=== PATIENT | female | born 1945 | race Caucasian/White ===

== ENCOUNTER 2024-03-15 14:41 | Emergency (ER) | payer MEDICARE, OTHER, SELFPAY ==
[2024-03-15 15:01] VITALS: BP 136/74
[2024-03-15 15:20] LABS: % Basophils 0.4 % (0-2); % Eosinophils 0.6 % (0-6); % Immature Granulocytes 0.2 % (0-0.5); % Lymphocytes 12.6 % (20.5-51.1); % Monocytes 7.1 % (1.7-9.3); % Neutrophils 79.1 % (42.2-75.2); Absolute Eosinophils 0.1 10^3/uL (0-0.7); Absolute Lymphocytes 1.2 10^3/uL (1.2-3.4); Absolute Monocytes 0.7 10^3/uL (0.1-0.6); Absolute Neutrophils 7.4 10^3/uL (1.4-6.5); Hematocrit 40.2 % (37.0-47.0); Hemoglobin 13.6 g/dL (12.0-16.0); Mean Corp Hgb Conc. 33.8 g/dL (33.0-37.0); Mean Corpuscular Hgb 28.4 pg (27.0-31.0); Mean Corpuscular Volume 83.9 fL (81.0-99.0); Mean Platelet Volume 8.6 fL (7.4-10.4); Nucleated Red Blood Cells % 0 %; Platelet Count 256 10^3/uL (130-400); Red Blood Cell Count 4.79 10^6/uL (4.20-5.40); Red Cell Dist. Width 14.1 % (11.5-14.5); White Blood Cell Count 9.3 10^3/uL (4.8-10.8)
[2024-03-15 15:40] LABS: Troponin I < 0.012 ng/ml
[2024-03-15 17:33] LABS: Blood Urea Nitrogen 14 mg/dl (7-17); Calcium 8.7 mg/dl (8.4-10.2); Carbon Dioxide 26 mmol/L (22-30); Chloride 104 mmol/L (98-107); Glucose 95 mg/dl (70-99); Lipase 102 U/L (23-300); Sodium 133 mmol/L (135-145); eGFR > 60.00
--- NOTE | 2024-03-15 18:15 | ED.GENMED ---
History of Present Illness
General
Chief Complaint: Abdominal Pain
Time Seen by Provider: 03/15/24 16:21
History of Present Illness
History of Present Illness:
78-year-old female with history of hyperlipidemia presents to the emergency department for evaluation of sudden onset epigastric pain beginning at approximately noon today. Pain gradually worsened and culminated in vomiting. Shortly after vomiting
the pain improved and upon arrival to the emergency department the pain resolved. She is currently asymptomatic on my evaluation. Prior abdominal surgery is isolated to an inguinal hernia repair at age 6. Denies any recent fevers or chills
Review of Systems
Review of Systems
Allergies reviewed?: Yes
All Other Systems: ROS reviewed and negative except as documented in HPI and ROS
Phy Exam
Physical Exam
Physical Exam:
GEN: Well appearing, NAD, WDWN
Eyes: PERRLA, EOMs intact, no scleral icterus
HENT: NCAT, oral mucosa moist
Lungs: CTAB, no wheezes, rales, rhonchi, normal chest wall excursion
Cardiac: RRR, no M/R/G, no peripheral edema. Radial pulses 2+ bilat
Abdomen: S, NT, ND, NABS, no masses or hepatosplenomegaly
Neuro: AO x 3
MSK: No gross deformity or ecchymosis. No edema. No digital clubbing
Skin: No rashes, petechiae. Normal color, no pallor or jaundice.
Psych: Calm, cooperative, proper hygiene
Course
Orders/Labs/Results
Orders:
Orders
03/15/24 15:03
Electrocardiogram (*1) Urgent
Reason for Study: Abdominal Pain
EKG- Treatment ONCE
03/15/24 15:07
Complete Blood Count/With Diff Urgent
Troponin I Urgent
03/15/24 16:55
Basic Metabolic Panel Urgent
Lipase Urgent
03/15/24 18:05
LFT [[id number]] Stat
03/15/24 18:54
US Abdomen Limited Urgent
Reason For Exam: epigastric pain/transaminitis
Abnormal Lab Results
03/15/24 03/15/24 03/15/24
15:07 16:55 18:05
Absolute Neuts (auto) 7.4 H 10^3/uL
(1.4-6.5)
Absolute Monos (auto) 0.7 H 10^3/uL
(0.1-0.6)
Neutrophils % 79.1 H %
(42.2-75.2)
Lymphocytes % 12.6 L %
(20.5-51.1)
Sodium 133 L mmol/L
(135-145)
Creatinine 0.5 L mg/dL
(0.6-1.0)
AST 497 H U/L
(14-36)
ALT 251 H U/L
(0-35)
Alkaline Phosphatase 136 H U/L
(38-126)
03/15/24 15:07
03/15/24 16:55
Vital Signs
Initial and Last Documented VS:
Initial Vital Signs
Temp Pulse Resp BP Pulse Ox
98.4 F 71 18 136/74 95
03/15/24 15:01 03/15/24 15:01 03/15/24 15:01 03/15/24 15:01 03/15/24 15:01
Last Documented Vital Signs
Temp Pulse Resp BP Pulse Ox
98.4 F 71 16 136/74 95
03/15/24 15:01 03/15/24 15:01 03/15/24 20:00 03/15/24 15:01 03/15/24 15:01
MDM/Problems Addressed
MDM/Problems Addressed:
Patient's abdominal exam is benign she has no tenderness. She was asymptomatic for the duration of my evaluation in the emergency department. Ultrasound unfortunately was not able to visualize the gallbladder however there is no obvious CBD
dilation. Given her transaminitis I would suspect a transiently obstructing biliary duct stone however cannot definitively confirm this. Recommend she follow-up as an outpatient with general surgery as well as a repeat outpatient ultrasound and
repeat LFTs within the next 1 to 2 weeks
*Critical Care Note
Total Time (30-74mins, 75-104mins- exclusive of procedures): Not Applicable
ED Attending Note
-
Portions of this chart may have been created with voice recognition software.� Occasional wrong word or��sound alike� substitutions may have occurred due to the inherent limitations of voice recognition software.
Discharge Plan
Departure
Patient Disposition: Home (Routine Discharge)
Date of Disposition: 03/15/24
Time of Disposition: 20:33
Patient with high blood pressure during this ER visit?: No
Discharge Problem:
Transaminitis, Acute upper abdominal pain
Instructions: Gallstones (DC)
Prescriptions:
No Action
meloxicam [Mobic] 15 MG tablet
15 mg PO DAILY
simvastatin 40 MG tablet
40 mg PO QPM
ascorbic acid (vitamin C) [Vitamin C] 500 MG tablet
1,000 mg PO DAILY
Biotin
1,000 mcg PO DAILY
Calcium + D3
1 tab PO DAILY
sennosides [senna] 1 TABLET tablet
2 tab PO BID 0RF
acetaminophen 325 MG tablet
650 mg PO Q4HWA 0RF
prednisone 10 MG tablet
40 mg PO .TAPER Qty: 10 0RF
Rx Instructions:
4 tabs day1, 3 tabs day 2, 2 tabs day3, 1 tab last day, then stop
polyethylene glycol 3350 17 GRAMS powder in packet
17 grams PO DAILY 0RF
magnesium hydroxide 30 ML suspension
30 ml PO DAILYPRN PRN (Reason: constipation) 0RF
aspirin 325 MG tablet,delayed release (DR/EC)
325 mg PO DAILY 0RF
docusate sodium 100 MG capsule
100 mg PO BID 0RF
oxycodone 5 MG tablet
5 mg PO Q4HPRN PRN (Reason: moderate-severe pain) Qty: 90 0RF
Rx Instructions:
dx tka
1-2 tabs
ongoing therapy
Referrals:
Benjamin Barry MD [Active] -
UNKNOWN - PT DOES,NOT KNOW [Family Provider] -
Activity Restrictions/Additional Instructions:
Please follow-up with your primary care physician within 1 to 2 weeks to obtain a repeat outpatient ultrasound as well as repeat liver function test blood work. If your symptoms recur return to the emergency department immediately. Follow-up with
your discretion with general surgery
Interventions
Interventions:
*Risk Screen - Suicide Last Done: 03/15/24 15:01
*General Assessment Last Done: 03/15/24 15:01
*Neglect/Abuse Screening Last Done: 03/15/24 15:01
ED- Fall Risk Assessment Last Done: 03/15/24 17:07
*ED COVID-19 Vaccine History Last Done: 03/15/24 15:01
*Nursing Disposition Last Done: 03/15/24 20:31
UX-Alzjko-Saspybocyk Assessment Last Done: 03/15/24 17:07
Discharge Date and Time
Print Language: ISRAELI
[2024-03-15 18:34] LABS: ALT (SGPT) 251 U/L (0-35); AST (SGOT) 497 U/L (14-36); Albumin 4.1 g/dl (3.5-5.0); Alkaline Phosphatase 136 U/L (38-126); Direct Bilirubin 0.4 mg/dl (0.0-0.4); Total Bilirubin 1.2 mg/dl (0.2-1.3); Total Protein 6.5 g/dl (6.3-8.2)
== END 2024-03-15 20:41 | disposition home or self-care (01) ==
LOC: EMR 14:41
PROVIDERS: Emergency Medicine; Physician Assistant; EMERGENCY PHYSICIAN Student in an Organized Health Care Education/Training Program
DX: R10.10 Upper abdominal pain, unspecified (principal); R74.01 Elevation of levels of liver transaminase levels; E78.5 Hyperlipidemia, unspecified
CPT/HCPCS: 99285; 76705; 80048; 80076; 83690; 84484; 85025; 93005